=== PATIENT | female | born 1980 | race Caucasian/White ===

== ENCOUNTER 2018-11-05 15:48 | Emergency (ER) | payer OTHER ==
--- NOTE | 2018-11-05 15:51 | EDPHY ---
H & P Time Seen by Provider: 11/05/18 15:51 HPI/ROS: CHIEF COMPLAINT: Right lower leg injury HISTORY OF PRESENT ILLNESS: The patient is a 38 y/o female arriving via EMS complaining of right lower leg pain from an injury sustained while skiing this afternoon at [place]. She was skiing when a snowboarder struck her at moderate speed. His board struck the middle of her right lower leg and she required assistance in the sled to get down the hill. Her left shoulder is also painful particularly with lifting her arm. She was helmeted and denies loss of consciousness. No neck or back pain, weakness, paresthesias, abdominal pain, chest pain, pelvis pain, other extremity injuries. REVIEW OF SYSTEMS: A ten system review of systems was performed and is negative with the exception of the items mentioned in the HPI. Past medical history: Denies Past surgical history: Denies Family history: Noncontributory Social history: [employer] at [employer]. with 2 children. Lives in [place]. General Appearance: Alert. Vital signs reviewed. Eyes: Pupils equal and round, no conjunctival injection, no discharge. Anicteric. ENT, Mouth: Mucous membranes are moist, no oropharyngeal erythema or edema. Neck: No lymphadenopathy, supple. Respiratory: Lungs are clear to auscultation; no wheezes, rales, or rhonchi. Cardiovascular: Regular rate and rhythm; no murmur, rub, or gallop. Gastrointestinal: Abdomen is soft and nontender, no masses or organomegaly. Pelvis: Stable. Skin: Warm and dry, no rashes on exposed skin, normal color. Back: Nontender to palpation over the thoracolumbar spine. No CVAT. Extremities: Mild left posterior shoulder pain. Lateral ecchymosis to right lower leg. Soft compartments RLE. Able to flex/ext right hip, ankle--but painful for her to move this leg. Pulses: 2+ DP bilaterally. 2+ bilateral radial pulses. Neurological: Alert and oriented. Movement of right leg and left shoulder limited by pain, otherwise moving extremities easily and equally. Sensation intact to light touch over RLE and LUE. Psychiatric: Normal affect. Constitutional: Initial Vital Signs Temperature (C) 36.8 C 11/05/18 15:56 Heart Rate 87 11/05/18 15:56 Respiratory Rate 16 11/05/18 15:56 Blood Pressure 115/76 11/05/18 15:56 O2 Sat (%) 99 11/05/18 15:56 O2 Delivery Mode Room Air Allergies/Adverse Reactions: No Known Allergies Allergy (Unverified 11/05/18 16:00) Home Medications: Medication Instructions Recorded Hydrocodone/APAP 5/325 [Cl[place] 1 - 2 tab PO Q4 PRN #15 tab 11/05/18 5/325 (RX)] Medical Decision Making - Diagnostics Imaging: I viewed and interpreted images myself ED Course/Re-evaluation: This is a 38 y/o female who presents with right lower leg pain and left shoulder pain secondary to being struck by a snowboarder while skiing. She has mild left posterior shoulder tenderness and ecchymosis to the lateral aspect of her right lower leg. She is neurovascularly intact. Abdomen benign. Plan for IV , tib/fib x-ray, shoulder x-ray, and pain management. X-rays are negative for fracture or dislocation. I have reviewed the images and the radiologist's reports. 1640: 600mg PO ibuprofen ordered for pain. She has been offered, but declined, additional pain medicine. She was given a prepack of [place] at discharge. Reevaluated patient and discussed findings. Plan for discharge home with crutches and standard care and orthopedist follow up instructions. Return precautions discussed. She is comfortable with this plan. She understands that RLE compartment syndrome is of particular concern. Danger signs reviewed with her. She will FU in the [facility], where she lives and works. Differential Diagnosis: I considered a ddx that includes but is not limited to head injury, vertebral injury, shoulder fracture or dislocation, LE fracture/hematoma/contusion/ compartment syndrome. - Data Points Medications Given: Discontinued Medications Hydrocodone Bitart/Acetaminophen (Cl[place] 5/325mg Prepack#6) 1 btl TAKEHOME EDNOW ONE Stop: 11/05/18 17:57 Last Admin: 11/05/18 18:00 Dose: 1 btl Ibuprofen (Motrin) 600 mg PO EDNOW ONE Stop: 11/05/18 16:41 Last Admin: 11/05/18 16:45 Dose: 600 mg Departure - Departure Disposition: Home, Routine, Self-Care Clinical Impression: Contusion of leg, right Qualifiers: Encounter type: initial encounter Qualified Code(s): S80.11XA - Contusion of right lower leg, initial encounter Condition: Good Instructions: Hydrocodone/Acetaminophen (By mouth), Compartment Syndrome (DC), Contusion in Adults (ED) Additional Instructions: 1. Tylenol and ibuprofen as directed on the packaging as needed for pain over the next few days. I am also prescribing [place] to use for more severe pain. Watch your overall tylenol dose--no more than 3000 mg in 24 hours. 2. Apply ice packs intermittently to sore areas over the next 1-2 days for swelling. 3. Follow up with orthopedist for unimproved symptoms over the next few days. 4. Be alert for signs of compartment syndrome including dramatically increasing pain and tight swelling, skin pallor, weakening pulse in your foot, weakness with movement. Return to an ED if these occur. Your injury is a setup for compartment syndrome, so you if you have any concerns at all I want you to be re-evaluated immediately. I have given you the name of the orthopedist on duty for our emergency department, but, of course, you can see an orthopedist in your hospital system. Use the crutches as needed. Referrals: Nehemias Pavon MD [Medical Doctor] - As per Instructions Stand Alone Forms: Narcotic Guidelines Prescriptions: Hydrocodone/APAP 5/325 [Cl[place] 5/325 (RX)] 1 - 2 tab PO Q4 PRN #15 tab PRN Reason: pain Report Scribed for: Kath Rosa Report Scribed by: Tamar Siddiqui Date of Report: 11/05/18 Time of Report: 16:01 Physician Review and Approval Statement: 11/05/18 15:51 Portions of this note were transcribed by the medical sociologist. I, Dr. Kath Rosa, personally performed the history, physical exam, and medical decision- making; and confirmed the accuracy of the information in the transcribed note.
[2018-11-05] MEDS ORDERED: IBUPROFEN 600 MG TAB PO ONE (16:40)
[2018-11-05 17:55] VITALS: BP 135/75
[2018-11-05] MEDS ORDERED: HYDROCOD/APAP 5/325 PREPACK#6 BTL TAKEHOME ONE (17:56)
== END 2018-11-05 18:07 | disposition home or self-care (01) ==
DX: S80.11XA Contusion of right lower leg, initial encounter (principal); M25.512 Pain in left shoulder; V00.328A Other snow-ski accident, initial encounter; Y93.23 Activity, snow (alpine) (downhill) skiing, snowboarding, sledding, tobogganing and snow tubing; Y92.828 Other wilderness area as the place of occurrence of the external cause; Y99.8 Other external cause status